=== PATIENT | female | born 1935 | race Caucasian/White ===

== ENCOUNTER 2017-01-12 09:51 | Emergency (ER) | payer MEDICARE ==
[~2017-01-12] VITALS: Ht 157.5 cm; Wt 71.0 kg
[~2017-01-12 09:51] MED LIST: ASCO500C2 PO; ASPI-515 PO; ATOR10TA9 PO; CHOL100018 PO; FLAX100013 PO; HUM100VI6 SQ; INSU100C5 SQ-INSULIN; INSU100I17 SQ-INSULIN; INSU100V12 SC; INSU100V12 SQ; LEVO150T5 PO; LEVO500T33 PO; LOSA50TA6 PO; OMEP-110 PO; [UNRECOGNIZED DRUG - OTHER] PO
[2017-01-12] MEDS ORDERED: LORazepam 2 MG/ML, 1ML ONE (10:19)
[2017-01-12] MEDS ORDERED: LORazepam 2 MG/ML, 1ML IVPush ONE (10:30)
[2017-01-12] MEDS ORDERED: SODIUM CHLORIDE FLUSH 10ML SYR IVF ONE (10:30)
[2017-01-12] MEDS ORDERED: SODIUM CHLORIDE 0.9% 1,000ML IVBOLUS ONE (10:30)
[2017-01-12 10:40] LABS: ASPARTATE AMINO TRANSFERASE 23 U/L (15-37); BLOOD UREA NITROGEN 26 mg/dL (7-18)
[2017-01-12 10:45] LABS: IS PT STATUS REG ER OR PRE ER? YES
[2017-01-12 12:08] VITALS: BP 124/54
== END 2017-01-12 13:21 | disposition home or self-care (01) ==
LOC: ED 10:39
DX: R42 Dizziness and giddiness (principal); F41.1 Generalized anxiety disorder; R06.4 Hyperventilation; E78.00 Pure hypercholesterolemia, unspecified; I10 Essential (primary) hypertension; E11.9 Type 2 diabetes mellitus without complications; E78.5 Hyperlipidemia, unspecified; Z85.9 Personal history of malignant neoplasm, unspecified; Z88.0 Allergy status to penicillin
CPT/HCPCS: 36415; 71010; 80053; 83690; 84484; 85025; 93005; 96361; 96374; 99285; J2060; J7030

== ENCOUNTER 2017-04-05 10:11 | Inpatient (IN) | payer MEDICARE ==
[~2017-04-05] VITALS: Ht 157.5 cm; Wt 63.5 kg
[2017-04-05] MEDS ORDERED: SODIUM CHLORIDE 0.9% 1,000 ML IV ONE (10:54)
[2017-04-05] MEDS ORDERED: ONDANSETRON 2MG/ML, 2ML IVPush ONE (11:00)
[2017-04-05] MEDS ORDERED: MORPHINE SULFATE 4 MG/ML, 1ML IVPush PRN (11:00)
[2017-04-05] MEDS ORDERED: MORPHINE SULFATE 4 MG/ML, 1ML ONE (11:26)
[2017-04-05] MEDS ORDERED: ONDANSETRON 2MG/ML, 2ML ONE (11:27)
[2017-04-05 11:50] LABS: HEMATOCRIT 41.9 % (34.6-47.8); HEMOGLOBIN 13.9 g/dL (11.7-16.4); WHITE BLOOD COUNT 6.1 x10^3/uL (3.4-10)
[2017-04-05 12:01] LABS: ASPARTATE AMINO TRANSFERASE 25 U/L (15-37); BLOOD UREA NITROGEN 32 mg/dL (7-18)
[2017-04-05 12:11] LABS: IS PT STATUS REG ER OR PRE ER? YES
[2017-04-05] MEDS ORDERED: GADOBUTROL 7.5 MMOL/7.5 ML PFS ONE (13:18)
[2017-04-05] MEDS ORDERED: ONDANSETRON 2MG/ML, 2ML IVPush PRN (14:30)
[2017-04-05] MEDS ORDERED: morphine SULFATE 10 MG/ML, 1ML IVPush PRN (14:30)
[2017-04-05] MEDS ORDERED: POLYETHYLENE GLYCOL 17 GM PACKET PO PRN (14:30)
[2017-04-05] MEDS ORDERED: LABETALOL 5MG/ML, 20ML IVPush PRN (14:30)
[2017-04-05] MEDS ORDERED: HYDROcodone/APAP 5/325 TABLET PO PRN (14:30)
[2017-04-05] MEDS ORDERED: HYDROmorphone 1 MG/ML, 1ML ONE (15:45)
[2017-04-05] MEDS: INSULIN ASPART 100 UNITS/ML, PEN SQ-INSULIN SCH ×2 (18:00→21:12)
[2017-04-05] MEDS: ACETAMINOPHEN 325 MG TABLET PO PRN (18:58)
[2017-04-05 20:00] VITALS: BP 108/60
[2017-04-05] MEDS: ATORVASTATIN 40 MG TABLET PO SCH (21:11)
[2017-04-05] MEDS: ASCORBIC ACID 500 MG TABLET PO SCH (21:11)
[2017-04-05] MEDS: INSULIN DETEMIR 100 UNITS/ML, PEN SQ-INSULIN SCH (21:12)
[2017-04-06 04:50] VITALS: BP 107/64
[2017-04-06 06:52] VITALS: BP 118/64
[2017-04-06] MEDS: INSULIN ASPART 100 UNITS/ML, PEN SQ-INSULIN SCH ×4 (08:11→20:13)
[2017-04-06] MEDS: ACETAMINOPHEN 325 MG TABLET PO PRN ×2 (08:22→20:12)
[2017-04-06] MEDS: LEVOTHYROXINE 150 MCG TABLET PO SCH (08:22)
[2017-04-06] MEDS: CHOLECALCIFEROL 1,000 UNIT TABLET PO SCH (08:22)
[2017-04-06] MEDS: CLOPIDOGREL 75 MG TABLET PO SCH (08:22)
[2017-04-06] MEDS: ASCORBIC ACID 500 MG TABLET PO SCH ×2 (08:22→20:14)
[2017-04-06] MEDS ORDERED: INSULIN ASPART 70/30, VIAL SQ-INSULIN SCH (09:00)
[2017-04-06] MEDS ORDERED: OMEPRAZOLE 20 MG CAPSULE.DR PO SCH (09:00)
[2017-04-06 15:00] VITALS: BP 121/59
[2017-04-06 19:54] VITALS: BP 129/74
[2017-04-06] MEDS: INSULIN DETEMIR 100 UNITS/ML, PEN SQ-INSULIN SCH (20:14)
[2017-04-06] MEDS: ATORVASTATIN 40 MG TABLET PO SCH (20:14)
[2017-04-07 01:35] VITALS: BP 107/63
[2017-04-07] MEDS: INSULIN ASPART 100 UNITS/ML, PEN SQ-INSULIN SCH ×4 (07:00→21:06)
[2017-04-07] MEDS: ACETAMINOPHEN 325 MG TABLET PO PRN (07:51)
[2017-04-07 08:23] VITALS: BP 132/68
[2017-04-07] MEDS ORDERED: LEVOFLOXACIN 500 MG TABLET PO ONE (08:30)
[2017-04-07] MEDS: ASCORBIC ACID 500 MG TABLET PO SCH ×2 (10:06→21:05)
[2017-04-07] MEDS: CLOPIDOGREL 75 MG TABLET PO SCH (10:06)
[2017-04-07] MEDS: LEVOTHYROXINE 150 MCG TABLET PO SCH (10:06)
[2017-04-07] MEDS: CHOLECALCIFEROL 1,000 UNIT TABLET PO SCH (10:06)
[2017-04-07] MEDS: CALCIUM CARBONATE 500 MG TAB.CHEW PO PRN ×2 (10:49→16:26)
[2017-04-07 12:53] VITALS: BP 149/66
[2017-04-07 18:54] VITALS: BP 176/72
[2017-04-07] MEDS: INSULIN DETEMIR 100 UNITS/ML, PEN SQ-INSULIN SCH (21:05)
[2017-04-07] MEDS: ATORVASTATIN 40 MG TABLET PO SCH (21:05)
[2017-04-07 21:07] VITALS: BP 168/76
[2017-04-08 01:43] VITALS: BP 126/69
[2017-04-08] MEDS: ACETAMINOPHEN 325 MG TABLET PO PRN (06:22)
[2017-04-08] MEDS: INSULIN ASPART 100 UNITS/ML, PEN SQ-INSULIN SCH ×4 (07:00→21:59)
[2017-04-08 09:05] VITALS: BP 154/69
[2017-04-08] MEDS: CALCIUM CARBONATE 500 MG TAB.CHEW PO PRN ×2 (09:12→16:45)
[2017-04-08] MEDS: LEVOFLOXACIN 250 MG TABLET PO SCH (09:12)
[2017-04-08] MEDS: CLOPIDOGREL 75 MG TABLET PO SCH (09:13)
[2017-04-08] MEDS: CHOLECALCIFEROL 1,000 UNIT TABLET PO SCH (09:13)
[2017-04-08] MEDS: ASCORBIC ACID 500 MG TABLET PO SCH ×2 (09:13→21:57)
[2017-04-08] MEDS: LEVOTHYROXINE 150 MCG TABLET PO SCH (09:13)
[2017-04-08] MEDS ORDERED: LABETALOL 5MG/ML, 20ML IVPush PRN (10:30)
[2017-04-08 14:41] VITALS: BP 133/67
[2017-04-08 19:31] VITALS: BP 160/78
[2017-04-08] MEDS: ATORVASTATIN 40 MG TABLET PO SCH (21:57)
[2017-04-08] MEDS: INSULIN DETEMIR 100 UNITS/ML, PEN SQ-INSULIN SCH (21:59)
[2017-04-09 01:26] VITALS: BP 110/61
[2017-04-09] MEDS: INSULIN ASPART 100 UNITS/ML, PEN SQ-INSULIN SCH ×4 (07:00→21:55)
[2017-04-09 07:38] VITALS: BP 144/66
[2017-04-09 09:01] LABS: HEMATOCRIT 37.6 % (34.6-47.8); HEMOGLOBIN 12.6 g/dL (11.7-16.4); WHITE BLOOD COUNT 5.1 x10^3/uL (3.4-10)
[2017-04-09 09:22] LABS: ASPARTATE AMINO TRANSFERASE 66 U/L (15-37); BLOOD UREA NITROGEN 29 mg/dL (7-18)
[2017-04-09] MEDS: LEVOFLOXACIN 250 MG TABLET PO SCH (10:35)
[2017-04-09] MEDS: LEVOTHYROXINE 150 MCG TABLET PO SCH (10:35)
[2017-04-09] MEDS: CLOPIDOGREL 75 MG TABLET PO SCH (10:35)
[2017-04-09] MEDS: CHOLECALCIFEROL 1,000 UNIT TABLET PO SCH (10:36)
[2017-04-09] MEDS: CALCIUM CARBONATE 500 MG TAB.CHEW PO PRN ×2 (10:36→16:37)
[2017-04-09] MEDS: ASCORBIC ACID 500 MG TABLET PO SCH ×2 (10:36→21:55)
[2017-04-09 15:03] VITALS: BP 170/70
[2017-04-09 18:06] VITALS: BP 138/71
[2017-04-09 20:46] VITALS: BP 160/71
[2017-04-09] MEDS: ATORVASTATIN 40 MG TABLET PO SCH (21:55)
[2017-04-09] MEDS: INSULIN DETEMIR 100 UNITS/ML, PEN SQ-INSULIN SCH (21:56)
[2017-04-10 00:55] VITALS: BP 116/67
[2017-04-10 06:00] LABS: ASPARTATE AMINO TRANSFERASE 58 U/L (15-37); BLOOD UREA NITROGEN 29 mg/dL (7-18)
[2017-04-10] MEDS: INSULIN ASPART 100 UNITS/ML, PEN SQ-INSULIN SCH ×2 (07:00→11:01)
[2017-04-10 08:05] VITALS: BP 117/66
[2017-04-10] MEDS: CLOPIDOGREL 75 MG TABLET PO SCH (08:12)
[2017-04-10] MEDS: LEVOTHYROXINE 150 MCG TABLET PO SCH (08:13)
[2017-04-10] MEDS: ASCORBIC ACID 500 MG TABLET PO SCH (08:13)
[2017-04-10] MEDS: CHOLECALCIFEROL 1,000 UNIT TABLET PO SCH (08:13)
[2017-04-10] MEDS: CALCIUM CARBONATE 500 MG TAB.CHEW PO PRN (08:46)
[2017-04-10] MEDS ORDERED: LEVOFLOXACIN 250 MG TABLET PO SCH (09:00)
[2017-04-10] MEDS ORDERED: LEVO250T23 PO (09:12)
[2017-04-10] MEDS ORDERED: CLOP75TA PO (09:12)
[2017-04-10] MEDS ORDERED: ATOR40TA78 PO (09:12)
== END 2017-04-10 11:45 | disposition home health service (06) | DRG 65 ==
LOC: ED 11:42 → EDIP 14:04 → SUATTDRO 14:06 → 4EST 16:37 → DCLOUNGE 04-10 11:15
PROVIDERS: ADMIT Internal Medicine; ATTEND Internal Medicine
DX: I63.9 Cerebral infarction, unspecified (principal); N39.0 Urinary tract infection, site not specified; N13.30 Unspecified hydronephrosis; E03.9 Hypothyroidism, unspecified; E11.22 Type 2 diabetes mellitus with diabetic chronic kidney disease; E55.9 Vitamin D deficiency, unspecified; E78.5 Hyperlipidemia, unspecified; F32.9 Major depressive disorder, single episode, unspecified; G43.909 Migraine, unspecified, not intractable, without status migrainosus; I08.0 Rheumatic disorders of both mitral and aortic valves; I12.9 Hypertensive chronic kidney disease with stage 1 through stage 4 chronic kidney disease, or unspecified chronic kidney disease; I65.23 Occlusion and stenosis of bilateral carotid arteries; K21.9 Gastro-esophageal reflux disease without esophagitis; H54.7 Unspecified visual loss; K76.0 Fatty (change of) liver, not elsewhere classified; N18.3 Chronic kidney disease, stage 3 (moderate); R74.0 Nonspecific elevation of levels of transaminase and lactic acid dehydrogenase [LDH]; B96.20 Unspecified Escherichia coli [E. coli] as the cause of diseases classified elsewhere; D32.9 Benign neoplasm of meninges, unspecified; Z79.4 Long term (current) use of insulin; Z79.82 Long term (current) use of aspirin; Z79.899 Other long term (current) drug therapy; Z80.3 Family history of malignant neoplasm of breast; Z85.72 Personal history of non-Hodgkin lymphomas; Z86.73 Personal history of transient ischemic attack (TIA), and cerebral infarction without residual deficits; Z90.49 Acquired absence of other specified parts of digestive tract; Z88.1 Allergy status to other antibiotic agents; Z91.030 Bee allergy status; Z88.5 Allergy status to narcotic agent; Z88.0 Allergy status to penicillin; Z88.2 Allergy status to sulfonamides; Z91.018 Allergy to other foods
CPT/HCPCS: 36415; 70450; 70544; 70551; 70553; 71010; 76700; 80047; 80053; 80061; 81001; 82962; 83036; 84443; 84484; 85025; 85610; 85651; 85730; 87077; 87086; 87186; 93005; 93306; 93880; 96361; 96374; 96375; 99292; A9585; J1815; J2405; 92523-GN; J7030

== ENCOUNTER 2017-09-09 19:37 | Emergency (ER) | payer MEDICARE ==
[~2017-09-09] VITALS: Ht 157.5 cm; Wt 71.8 kg
[~2017-09-09 19:37] MED LIST changes: +ATOR40TA78 PO; +CHOL100012 PO; -CHOL100018 PO; +CLOP75TA PO; +LEVO250T23 PO; -LEVO500T33 PO; +LEVO500T47 PO
[2017-09-09] MEDS ORDERED: SODIUM CHLORIDE FLUSH 10ML SYR IVF ONE (20:00)
[2017-09-09 20:29] LABS: BASOPHILS # (AUTO) 0.03 x10^3/uL (0-0.1); BASOPHILS % (AUTO) 1 % (0-1); EOSINOPHILS # (AUTO) 0.08 x10^3/uL (0-0.4); EOSINOPHILS % (AUTO) 2 % (1-7); LYMPHOCYTES # (AUTO) 0.98 x10^3/uL (1-3.4); LYMPHOCYTES % (AUTO) 22 % (22-44); MD NO; MEAN CORPUSCULAR HGB CONC 33.6 g/dL (32.4-35.8); MEAN CORPUSCULAR VOLUME 89.3 fL (80-100); MEAN PLATELET VOLUME 8.5 fL (7.4-10.4); MONOCYTES # (AUTO) 0.42 x10^3/uL (0.2-0.8); MONOCYTES % (AUTO) 10 % (2-9); NEUTROPHILS # (AUTO) 2.87 x10^3/uL (1.8-6.8); NEUTROPHILS % (AUTO) 65 % (42-75); PLATELET COUNT 189 x10^3/uL (130-400); RED BLOOD COUNT 4.49 x10^6/uL (3.82-5.3); RED CELL DISTRIBUTION WIDTH 14.4 % (9.6-15.2)
[2017-09-09 20:37] LABS: INTERNATIONAL NORMALIZED RATIO 0.99 (0.93-1.1); PROTHROMBIN TIME 10.3 Seconds (9.6-11.5)
[2017-09-09 20:40] LABS: ALANINE AMINOTRANSFERASE 32 U/L (12-78); ALBUMIN 3.6 g/dL (3.4-5.0); ANION GAP 8 mmol/L (5-15); CALCIUM 9.5 mg/dL (8.5-10.1); CHLORIDE 108 mmol/L (98-107); CREATININE 1.28 mg/dL (0.55-1.02)
[2017-09-09 20:43] LABS: ALKALINE PHOSPHATASE 85 U/L (45-117); TOTAL PROTEIN 6.8 g/dL (6.4-8.2)
[2017-09-09 21:39] VITALS: BP 157/61
== END 2017-09-09 21:43 | disposition home or self-care (01) ==
LOC: ED 21:20
DX: G45.9 Transient cerebral ischemic attack, unspecified (principal); N28.9 Disorder of kidney and ureter, unspecified; R20.0 Anesthesia of skin; Z88.0 Allergy status to penicillin; Z88.6 Allergy status to analgesic agent; Z88.2 Allergy status to sulfonamides; Z90.49 Acquired absence of other specified parts of digestive tract; E78.5 Hyperlipidemia, unspecified; I10 Essential (primary) hypertension; E11.9 Type 2 diabetes mellitus without complications; Z88.1 Allergy status to other antibiotic agents
CPT/HCPCS: 36415; 70450; 80053; 85025; 85610; 93005; 99285

== ENCOUNTER 2018-02-12 17:08 | Inpatient (IN) | payer MEDICARE ==
[~2018-02-12] VITALS: Ht 157.5 cm; Wt 71.8 kg
[~2018-02-12 17:08] MED LIST changes: +ATOR-2 PO; +CEFD300C37 PO
[2018-02-12 17:46] LABS: BASOPHILS # (AUTO) 0.01 x10^3/uL (0-0.1); BASOPHILS % (AUTO) 0 % (0-1); EOSINOPHILS # (AUTO) 0.04 x10^3/uL (0-0.4); EOSINOPHILS % (AUTO) 1 % (1-7); LYMPHOCYTES # (AUTO) 0.87 x10^3/uL (1-3.4); LYMPHOCYTES % (AUTO) 11 % (22-44); MD NO; MEAN CORPUSCULAR HEMOGLOBIN 30.2 pg (27.0-34.8); MEAN CORPUSCULAR HGB CONC 33.6 g/dL (32.4-35.8); MEAN PLATELET VOLUME 8.4 fL (7.4-10.4); MONOCYTES # (AUTO) 0.48 x10^3/uL (0.2-0.8); MONOCYTES % (AUTO) 6 % (2-9); NEUTROPHILS # (AUTO) 6.24 x10^3/uL (1.8-6.8); NEUTROPHILS % (AUTO) 82 % (42-75); PLATELET COUNT 217 x10^3/uL (130-400); RED BLOOD COUNT 4.67 x10^6/uL (3.82-5.3); RED CELL DISTRIBUTION WIDTH 14.1 % (9.6-15.2)
[2018-02-12 17:52] LABS: ALANINE AMINOTRANSFERASE 120 U/L (12-78); ALBUMIN 3.9 g/dL (3.4-5.0); ANION GAP 9 mmol/L (5-15); CALCIUM 9.9 mg/dL (8.5-10.1); CHLORIDE 107 mmol/L (98-107); CREATININE 1.25 mg/dL (0.55-1.02)
[2018-02-12 17:55] LABS: ALKALINE PHOSPHATASE 102 U/L (45-117); BILIRUBIN,TOTAL 1.8 mg/dL (0.2-1.0); TOTAL PROTEIN 7.4 g/dL (6.4-8.2)
[2018-02-12 18:10] LABS: MICROSCOPIC NOT IND
[2018-02-12 18:11] LABS: CULTURE INDICATED? NO
[2018-02-12] MEDS ORDERED: MORPHINE SULFATE 4 MG/ML, 1ML ONE ×2 (18:15→20:15)
[2018-02-12] MEDS: MORPHINE SULFATE 4 MG/ML, 1ML IVPush PRN ×2 (18:17→20:17)
[2018-02-12] MEDS ORDERED: SODIUM CHLORIDE FLUSH 10ML SYR IVF ONE (18:30)
[2018-02-12] MEDS ORDERED: PANT40TA5 PO (20:21)
[2018-02-12] MEDS ORDERED: NORT25CA PO (20:21)
[2018-02-12] MEDS ORDERED: MULT-658 PO (20:21)
[2018-02-12] MEDS ORDERED: POTASSIUM CHLORIDE 20 MEQ in LACTATED RINGERS 1,000 ML IV SCH (20:59)
[2018-02-12] MEDS ORDERED: ONDANSETRON ODT 4 MG PO PRN (21:00)
[2018-02-12] MEDS ORDERED: DEXTROSE 50%, 50ML SYRINGE IVPush PRN (21:00)
[2018-02-12] MEDS ORDERED: morphine SULFATE 10 MG/ML, 1ML IVPush PRN (21:00)
[2018-02-12] MEDS ORDERED: hydrALAzine 20 MG/ML, 1ML IVPush PRN (21:00)
[2018-02-12] MEDS ORDERED: DEXTROSE 4 GM TAB.CHEW PO PRN (21:00)
[2018-02-12] MEDS ORDERED: GLUCAGON 1 MG IM PRN (21:00)
[2018-02-12] MEDS ORDERED: ENALAPRILAT 1.25 MG/ML, 2ML IVPush PRN (21:00)
[2018-02-12] MEDS ORDERED: BISACODYL 10 MG SUPP PR PRN (21:00)
[2018-02-12] MEDS ORDERED: ACETAMINOPHEN 325 MG TABLET PO PRN (21:00)
[2018-02-12 21:10] VITALS: BP 128/64
[2018-02-12] MEDS: ONDANSETRON 2MG/ML, 2ML IVPush PRN (21:19)
[2018-02-12 22:00] VITALS: BP 128/64
[2018-02-12] MEDS: ATORVASTATIN 80 MG TABLET PO SCH (22:37)
[2018-02-12] MEDS: SODIUM CHLORIDE FLUSH 10ML SYR IVF SCH (22:37)
[2018-02-12] MEDS: PANTOPROZOLE 40MG TABLET PO SCH (22:37)
[2018-02-12] MEDS: ENOXAPARIN 40 MG/0.4 ML SQ SCH (22:38)
[2018-02-12] MEDS: KETOROLAC 30 MG/1 ML IVPush SCH (22:38)
[2018-02-12] MEDS: INSULIN LISPRO 100 UNITS/ML, PEN SQ-INSULIN SCH (23:23)
[2018-02-13 03:10] VITALS: BP 150/72
[2018-02-13] MEDS: KETOROLAC 30 MG/1 ML IVPush SCH ×4 (03:49→22:25)
[2018-02-13 05:31] LABS: BASOPHILS % (AUTO) 0 % (0-1); EOSINOPHILS # (AUTO) 0.01 x10^3/uL (0-0.4); EOSINOPHILS % (AUTO) 0 % (1-7); LYMPHOCYTES # (AUTO) 0.54 x10^3/uL (1-3.4); LYMPHOCYTES % (AUTO) 8 % (22-44); MD NO; MEAN CORPUSCULAR HEMOGLOBIN 30.2 pg (27.0-34.8); MEAN CORPUSCULAR HGB CONC 33.8 g/dL (32.4-35.8); MEAN CORPUSCULAR VOLUME 89.5 fL (80-100); MEAN PLATELET VOLUME 8.5 fL (7.4-10.4); MONOCYTES # (AUTO) 0.58 x10^3/uL (0.2-0.8); MONOCYTES % (AUTO) 9 % (2-9); NEUTROPHILS # (AUTO) 5.55 x10^3/uL (1.8-6.8); NEUTROPHILS % (AUTO) 83 % (42-75); PLATELET COUNT 174 x10^3/uL (130-400); RED BLOOD COUNT 4.15 x10^6/uL (3.82-5.3); RED CELL DISTRIBUTION WIDTH 14.5 % (9.6-15.2)
[2018-02-13 05:39] LABS: ALBUMIN 3.4 g/dL (3.4-5.0); ANION GAP 8 mmol/L (5-15); CALCIUM 9.5 mg/dL (8.5-10.1); CHLORIDE 105 mmol/L (98-107)
[2018-02-13 05:42] LABS: ALANINE AMINOTRANSFERASE 622 U/L (12-78); ALKALINE PHOSPHATASE 220 U/L (45-117); BILIRUBIN,TOTAL 2.7 mg/dL (0.2-1.0); CREATININE 1.18 mg/dL (0.55-1.02); TOTAL PROTEIN 6.4 g/dL (6.4-8.2)
[2018-02-13] MEDS: HYDROcodone/APAP 5/325 TABLET PO PRN ×3 (06:11→18:30)
[2018-02-13 07:03] VITALS: BP 145/67
[2018-02-13] MEDS ORDERED: INSULIN HUMULIN 70/30, 3ML PEN SQ-INSULIN SCH (09:00)
[2018-02-13] MEDS ORDERED: FLAXSEED 1000 MG PO SCH (09:00)
[2018-02-13] MEDS ORDERED: INSULIN ASPART 70/30, VIAL SQ-INSULIN SCH (09:00)
[2018-02-13] MEDS: INSULIN ASPART 70/30 100U/ML, PEN SQ-INSULIN SCH (09:15)
[2018-02-13] MEDS: INSULIN LISPRO 100 UNITS/ML, PEN SQ-INSULIN SCH ×4 (09:15→22:38)
[2018-02-13] MEDS: SODIUM CHLORIDE FLUSH 10ML SYR IVF SCH ×2 (09:18→22:38)
[2018-02-13] MEDS: PANTOPROZOLE 40MG TABLET PO SCH ×2 (09:18→22:25)
[2018-02-13] MEDS: CHOLECALCIFEROL 1,000 UNIT TABLET PO SCH (09:18)
[2018-02-13] MEDS: MULTIVITAMIN 1 TABLET PO SCH (09:18)
[2018-02-13] MEDS: SENNA/DOCUSATE TABLET PO SCH (09:18)
[2018-02-13] MEDS: CLOPIDOGREL 75 MG TABLET PO SCH (09:18)
[2018-02-13] MEDS: LEVOTHYROXINE 150 MCG TABLET PO SCH (09:19)
[2018-02-13] MEDS: LOSARTAN 50MG TABLET PO SCH (09:19)
[2018-02-13] MEDS: NORTRIPTYLINE 25 MG CAPSULE PO SCH (09:19)
[2018-02-13 12:16] VITALS: BP 138/60
[2018-02-13 19:15] VITALS: BP 145/75
[2018-02-13] MEDS: ENOXAPARIN 40 MG/0.4 ML SQ SCH (22:25)
[2018-02-13] MEDS: ATORVASTATIN 80 MG TABLET PO SCH (22:25)
[2018-02-14] MEDS: POTASSIUM CHLORIDE 20 MEQ in LACTATED RINGERS 1,000 ML IV SCH ×2 (01:46→11:49)
[2018-02-14 02:00] VITALS: BP 133/67
[2018-02-14] MEDS: KETOROLAC 30 MG/1 ML IVPush SCH ×3 (04:16→17:34)
[2018-02-14] MEDS: HYDROcodone/APAP 5/325 TABLET PO PRN (04:16)
[2018-02-14] MEDS: LEVOTHYROXINE 150 MCG TABLET PO SCH (05:26)
[2018-02-14 05:52] LABS: CHLORIDE 103 mmol/L (98-107)
[2018-02-14 06:06] LABS: ALANINE AMINOTRANSFERASE 436 U/L (12-78); ALBUMIN 3.3 g/dL (3.4-5.0); ALKALINE PHOSPHATASE 211 U/L (45-117); ANION GAP 8 mmol/L (5-15); BILIRUBIN,TOTAL 1.9 mg/dL (0.2-1.0); CREATININE 1.27 mg/dL (0.55-1.02); TOTAL PROTEIN 6.5 g/dL (6.4-8.2)
[2018-02-14 06:40] VITALS: BP 166/66
[2018-02-14] MEDS: SODIUM CHLORIDE FLUSH 10ML SYR IVF SCH ×2 (07:53→21:51)
[2018-02-14] MEDS: INSULIN LISPRO 100 UNITS/ML, PEN SQ-INSULIN SCH ×4 (07:53→21:51)
[2018-02-14] MEDS: LOSARTAN 50MG TABLET PO SCH (07:54)
[2018-02-14] MEDS: SENNA/DOCUSATE TABLET PO SCH (07:56)
[2018-02-14] MEDS: MULTIVITAMIN 1 TABLET PO SCH (07:56)
[2018-02-14] MEDS: NORTRIPTYLINE 25 MG CAPSULE PO SCH (07:56)
[2018-02-14] MEDS: CLOPIDOGREL 75 MG TABLET PO SCH (07:56)
[2018-02-14] MEDS: PANTOPROZOLE 40MG TABLET PO SCH ×2 (07:56→21:43)
[2018-02-14] MEDS: CHOLECALCIFEROL 1,000 UNIT TABLET PO SCH (07:56)
[2018-02-14] MEDS: INSULIN ASPART 70/30 100U/ML, PEN SQ-INSULIN SCH (07:57)
[2018-02-14] MEDS: OXYcodone IR 5MG TABLET PO PRN ×4 (07:57→21:43)
[2018-02-14] MEDS ORDERED: methylPREDNISolone 4mg DOSE PACK PO SCH (09:00)
[2018-02-14 14:14] VITALS: BP 158/65
[2018-02-14] MEDS: LIDODERM 5% PATCH TD SCH (17:34)
[2018-02-14 20:00] VITALS: BP 157/71
[2018-02-14] MEDS: ATORVASTATIN 80 MG TABLET PO SCH (21:43)
[2018-02-14] MEDS: ENOXAPARIN 30 MG/0.3 ML SQ SCH (21:50)
[2018-02-15] MEDS: KETOROLAC 30 MG/1 ML IVPush SCH ×4 (00:14→18:28)
[2018-02-15] MEDS: POTASSIUM CHLORIDE 20 MEQ in LACTATED RINGERS 1,000 ML IV SCH (00:14)
[2018-02-15 02:14] VITALS: BP 153/71
[2018-02-15] MEDS: OXYcodone IR 5MG TABLET PO PRN ×3 (04:41→23:55)
[2018-02-15] MEDS: LIDODERM 5% PATCH TD SCH (05:00)
[2018-02-15 05:02] LABS: ALANINE AMINOTRANSFERASE 314 U/L (12-78); ALBUMIN 3.3 g/dL (3.4-5.0); ANION GAP 8 mmol/L (5-15); CALCIUM 8.9 mg/dL (8.5-10.1); CHLORIDE 105 mmol/L (98-107); CREATININE 1.24 mg/dL (0.55-1.02)
[2018-02-15 05:04] LABS: ALKALINE PHOSPHATASE 200 U/L (45-117); BILIRUBIN,TOTAL 1.4 mg/dL (0.2-1.0); TOTAL PROTEIN 6.7 g/dL (6.4-8.2)
[2018-02-15] MEDS: LEVOTHYROXINE 150 MCG TABLET PO SCH (06:10)
[2018-02-15 07:59] VITALS: BP 142/70
[2018-02-15] MEDS: INSULIN ASPART 70/30 100U/ML, PEN SQ-INSULIN SCH (08:13)
[2018-02-15] MEDS: INSULIN LISPRO 100 UNITS/ML, PEN SQ-INSULIN SCH ×4 (08:14→21:26)
[2018-02-15] MEDS: SODIUM CHLORIDE FLUSH 10ML SYR IVF SCH ×2 (08:17→21:22)
[2018-02-15] MEDS: SENNA/DOCUSATE TABLET PO SCH (08:17)
[2018-02-15] MEDS: MULTIVITAMIN 1 TABLET PO SCH (08:17)
[2018-02-15] MEDS: CLOPIDOGREL 75 MG TABLET PO SCH (08:18)
[2018-02-15] MEDS: PANTOPROZOLE 40MG TABLET PO SCH ×2 (08:18→21:22)
[2018-02-15] MEDS: NORTRIPTYLINE 25 MG CAPSULE PO SCH (08:18)
[2018-02-15] MEDS: CHOLECALCIFEROL 1,000 UNIT TABLET PO SCH (08:18)
[2018-02-15] MEDS: LOSARTAN 50MG TABLET PO SCH (08:19)
[2018-02-15] MEDS: ONDANSETRON 2MG/ML, 2ML IVPush PRN (10:06)
[2018-02-15 14:00] VITALS: BP 149/69
[2018-02-15 21:18] VITALS: BP 156/74
[2018-02-15] MEDS: ENOXAPARIN 30 MG/0.3 ML SQ SCH (21:22)
[2018-02-15] MEDS: ATORVASTATIN 80 MG TABLET PO SCH (21:22)
[2018-02-16] MEDS: KETOROLAC 30 MG/1 ML IVPush SCH ×4 (00:36→18:46)
[2018-02-16 00:40] VITALS: BP 153/79
[2018-02-16] MEDS: POLYETHYLENE GLYCOL 17 GM PACKET PO PRN (02:54)
[2018-02-16] MEDS: LIDODERM 5% PATCH TD SCH (05:50)
[2018-02-16] MEDS: LEVOTHYROXINE 150 MCG TABLET PO SCH (05:50)
[2018-02-16 06:15] LABS: ALANINE AMINOTRANSFERASE 251 U/L (12-78); ALBUMIN 3.2 g/dL (3.4-5.0); ALKALINE PHOSPHATASE 200 U/L (45-117); BILIRUBIN,TOTAL 1.1 mg/dL (0.2-1.0); CALCIUM 8.6 mg/dL (8.5-10.1); CREATININE 1.15 mg/dL (0.55-1.02); TOTAL PROTEIN 6.5 g/dL (6.4-8.2)
[2018-02-16 06:31] LABS: ANION GAP 10 mmol/L (5-15); CHLORIDE 103 mmol/L (98-107)
[2018-02-16 07:54] VITALS: BP 138/71
[2018-02-16] MEDS: CHOLECALCIFEROL 1,000 UNIT TABLET PO SCH (08:31)
[2018-02-16] MEDS: INSULIN LISPRO 100 UNITS/ML, PEN SQ-INSULIN SCH ×4 (08:31→20:18)
[2018-02-16] MEDS: MULTIVITAMIN 1 TABLET PO SCH (08:31)
[2018-02-16] MEDS: SENNA/DOCUSATE TABLET PO SCH (08:31)
[2018-02-16] MEDS: INSULIN ASPART 70/30 100U/ML, PEN SQ-INSULIN SCH (08:31)
[2018-02-16] MEDS: CLOPIDOGREL 75 MG TABLET PO SCH (08:31)
[2018-02-16] MEDS: LOSARTAN 50MG TABLET PO SCH (08:32)
[2018-02-16] MEDS: SODIUM CHLORIDE FLUSH 10ML SYR IVF SCH ×2 (08:32→20:07)
[2018-02-16] MEDS: NORTRIPTYLINE 25 MG CAPSULE PO SCH (08:32)
[2018-02-16] MEDS: PANTOPROZOLE 40MG TABLET PO SCH ×2 (08:32→20:08)
[2018-02-16] MEDS: OXYcodone IR 5MG TABLET PO PRN ×2 (11:09→20:08)
[2018-02-16 14:38] VITALS: BP 155/76
[2018-02-16 19:26] VITALS: BP 135/72
[2018-02-16] MEDS: ENOXAPARIN 40 MG/0.4 ML SQ SCH (20:07)
[2018-02-16] MEDS: ATORVASTATIN 80 MG TABLET PO SCH (20:07)
[2018-02-17] MEDS: KETOROLAC 30 MG/1 ML IVPush SCH ×4 (00:28→18:31)
[2018-02-17 02:05] VITALS: BP 171/72
[2018-02-17 03:09] VITALS: BP 122/75
[2018-02-17] MEDS: OXYcodone IR 5MG TABLET PO PRN ×3 (04:26→21:39)
[2018-02-17] MEDS: LEVOTHYROXINE 150 MCG TABLET PO SCH (05:29)
[2018-02-17] MEDS: LIDODERM 5% PATCH TD SCH (05:30)
[2018-02-17] MEDS: INSULIN LISPRO 100 UNITS/ML, PEN SQ-INSULIN SCH ×4 (09:29→20:05)
[2018-02-17] MEDS: LOSARTAN 50MG TABLET PO SCH (09:30)
[2018-02-17] MEDS: CLOPIDOGREL 75 MG TABLET PO SCH (09:30)
[2018-02-17] MEDS: MULTIVITAMIN 1 TABLET PO SCH (09:30)
[2018-02-17] MEDS: SENNA/DOCUSATE TABLET PO SCH (09:30)
[2018-02-17] MEDS: PANTOPROZOLE 40MG TABLET PO SCH ×2 (09:30→19:57)
[2018-02-17] MEDS: NORTRIPTYLINE 25 MG CAPSULE PO SCH (09:30)
[2018-02-17] MEDS: CHOLECALCIFEROL 1,000 UNIT TABLET PO SCH (09:30)
[2018-02-17] MEDS: INSULIN ASPART 70/30 100U/ML, PEN SQ-INSULIN SCH (09:31)
[2018-02-17] MEDS: SODIUM CHLORIDE FLUSH 10ML SYR IVF SCH ×2 (09:34→19:57)
[2018-02-17 09:37] VITALS: BP 131/68
[2018-02-17 16:51] VITALS: BP 109/69
[2018-02-17] MEDS: POLYETHYLENE GLYCOL 17 GM PACKET PO PRN (17:40)
[2018-02-17 19:35] VITALS: BP 110/63
[2018-02-17] MEDS: ATORVASTATIN 80 MG TABLET PO SCH (19:57)
[2018-02-17] MEDS: ENOXAPARIN 40 MG/0.4 ML SQ SCH (19:57)
[2018-02-18 01:52] VITALS: BP 117/66
[2018-02-18] MEDS: LIDODERM 5% PATCH TD SCH (05:33)
[2018-02-18] MEDS: LEVOTHYROXINE 150 MCG TABLET PO SCH (05:34)
[2018-02-18 07:37] VITALS: BP 129/74
[2018-02-18] MEDS: INSULIN LISPRO 100 UNITS/ML, PEN SQ-INSULIN SCH ×4 (08:34→21:23)
[2018-02-18] MEDS: MULTIVITAMIN 1 TABLET PO SCH (08:35)
[2018-02-18] MEDS: NORTRIPTYLINE 25 MG CAPSULE PO SCH (08:35)
[2018-02-18] MEDS: LOSARTAN 50MG TABLET PO SCH (08:35)
[2018-02-18] MEDS: SODIUM CHLORIDE FLUSH 10ML SYR IVF SCH ×2 (08:35→21:00)
[2018-02-18] MEDS: CHOLECALCIFEROL 1,000 UNIT TABLET PO SCH (08:36)
[2018-02-18] MEDS: PANTOPROZOLE 40MG TABLET PO SCH ×2 (08:36→21:17)
[2018-02-18] MEDS: INSULIN ASPART 70/30 100U/ML, PEN SQ-INSULIN SCH (08:36)
[2018-02-18] MEDS: SENNA/DOCUSATE TABLET PO SCH (08:36)
[2018-02-18] MEDS: CLOPIDOGREL 75 MG TABLET PO SCH (08:36)
[2018-02-18] MEDS ORDERED: ACETAMINOPHEN 325 MG TABLET PO PRN (09:00)
[2018-02-18] MEDS: OXYcodone IR 5MG TABLET PO PRN ×2 (09:51→21:17)
[2018-02-18 14:18] VITALS: BP 91/52
[2018-02-18 20:05] VITALS: BP 113/68
[2018-02-18] MEDS: ENOXAPARIN 40 MG/0.4 ML SQ SCH (21:16)
[2018-02-18] MEDS: ATORVASTATIN 80 MG TABLET PO SCH (21:17)
[2018-02-19 01:50] VITALS: BP 111/61
[2018-02-19] MEDS: OXYcodone IR 5MG TABLET PO PRN (02:41)
[2018-02-19] MEDS: LIDODERM 5% PATCH TD SCH (05:00)
[2018-02-19] MEDS: LEVOTHYROXINE 150 MCG TABLET PO SCH (05:44)
[2018-02-19] MEDS: INSULIN ASPART 70/30 100U/ML, PEN SQ-INSULIN SCH (08:26)
[2018-02-19] MEDS: INSULIN LISPRO 100 UNITS/ML, PEN SQ-INSULIN SCH ×2 (08:27→11:13)
[2018-02-19] MEDS: NORTRIPTYLINE 25 MG CAPSULE PO SCH (08:28)
[2018-02-19] MEDS: SODIUM CHLORIDE FLUSH 10ML SYR IVF SCH (08:28)
[2018-02-19] MEDS: CHOLECALCIFEROL 1,000 UNIT TABLET PO SCH (08:29)
[2018-02-19] MEDS: LOSARTAN 50MG TABLET PO SCH (08:29)
[2018-02-19] MEDS: SENNA/DOCUSATE TABLET PO SCH (08:29)
[2018-02-19] MEDS: MULTIVITAMIN 1 TABLET PO SCH (08:29)
[2018-02-19] MEDS: PANTOPROZOLE 40MG TABLET PO SCH (08:29)
[2018-02-19] MEDS: CLOPIDOGREL 75 MG TABLET PO SCH (08:29)
[2018-02-19 08:31] VITALS: BP 120/68
[2018-02-19] MEDS: POLYETHYLENE GLYCOL 17 GM PACKET PO PRN (11:07)
[2018-02-19 14:38] VITALS: BP 111/65
== END 2018-02-19 16:10 | DRG 551 ==
LOC: ED 18:33 → EDIP 20:21 → 3NE 20:57
PROVIDERS: ADMIT Family Medicine; ATTEND Family Medicine
DX: M51.16 Intervertebral disc disorders with radiculopathy, lumbar region (principal); R53.2 Functional quadriplegia; N18.9 Chronic kidney disease, unspecified; E03.9 Hypothyroidism, unspecified; E78.5 Hyperlipidemia, unspecified; E78.00 Pure hypercholesterolemia, unspecified; E11.22 Type 2 diabetes mellitus with diabetic chronic kidney disease; Z66 Do not resuscitate; G43.909 Migraine, unspecified, not intractable, without status migrainosus; I12.9 Hypertensive chronic kidney disease with stage 1 through stage 4 chronic kidney disease, or unspecified chronic kidney disease; Z86.73 Personal history of transient ischemic attack (TIA), and cerebral infarction without residual deficits; Z79.02 Long term (current) use of antithrombotics/antiplatelets; Z79.4 Long term (current) use of insulin; Z85.72 Personal history of non-Hodgkin lymphomas; Z90.710 Acquired absence of both cervix and uterus; Z90.49 Acquired absence of other specified parts of digestive tract; Z88.5 Allergy status to narcotic agent; Z88.0 Allergy status to penicillin; Z88.2 Allergy status to sulfonamides; Z88.1 Allergy status to other antibiotic agents; Z91.030 Bee allergy status
CPT/HCPCS: 36415; 72131; 74176; 76705; 80053; 80074; 80307; 81003; 82962; 83690; 85025; 99285; J1650; J1885; J2405; J3480; J7509; Q0162; J0360; J1815; J7120

== ENCOUNTER → 2019-03-03 | Outpatient (CLI) | payer MEDICARE ==
[~2019-03-03] MED LIST changes: +CLOP75TA52 PO; +GABA100C PO; +LOSA50TA14 PO; -LOSA50TA6 PO; +MAGN200T7 PO; +MIRA25TA PO; +MULT-658 PO; +NORT25CA78 PO; +PANT40TA5 PO; +VIT1CAPS42 PO; +[UNRECOGNIZED DRUG - OTHER] PO
[2019-03-03 10:14] LABS: ALBUMIN 3.8 g/dL (3.4-5.0); ANION GAP 8 mmol/L (5-15); CALCIUM 9.4 mg/dL (8.5-10.1); CHLORIDE 108 mmol/L (98-107)
[2019-03-03 10:17] LABS: MICROSCOPIC NOT IND
[2019-03-03 10:18] LABS: ALANINE AMINOTRANSFERASE 26 U/L (12-78); ALKALINE PHOSPHATASE 95 U/L (45-117); CREATININE 0.94 mg/dL (0.55-1.02); TOTAL PROTEIN 6.7 g/dL (6.4-8.2)
[2019-03-03 10:24] LABS: CULTURE INDICATED? NO
== END | disposition home or self-care (01) ==
LOC: STAR 08:50
PROVIDERS: ATTEND Orthopaedic Surgery
DX: Z01.818 Encounter for other preprocedural examination (principal); G56.03 Carpal tunnel syndrome, bilateral upper limbs; I45.10 Unspecified right bundle-branch block
CPT/HCPCS: 36415; 80053; 81003; 93005

== ENCOUNTER → 2019-08-13 | Outpatient (CLI) | payer MEDICARE ==
[~2019-08-13] MED LIST changes: +ASCO250T2 PO; +ROSU10TA2 PO
[2019-08-13 10:53] LABS: ALANINE AMINOTRANSFERASE 28 U/L (12-78); ALBUMIN 3.7 g/dL (3.4-5.0); ANION GAP 6 mmol/L (5-15); CALCIUM 9.6 mg/dL (8.5-10.1); CHLORIDE 110 mmol/L (98-107)
[2019-08-13 10:56] LABS: ALKALINE PHOSPHATASE 85 U/L (45-117); BILIRUBIN,TOTAL 1.3 mg/dL (0.2-1.0); CREATININE 1.11 mg/dL (0.55-1.02); TOTAL PROTEIN 6.8 g/dL (6.4-8.2)
== END | disposition home or self-care (01) ==
LOC: STAR 09:45
PROVIDERS: ATTEND Surgery
DX: Z01.818 Encounter for other preprocedural examination (principal); R92.8 Other abnormal and inconclusive findings on diagnostic imaging of breast; I45.10 Unspecified right bundle-branch block; Z80.3 Family history of malignant neoplasm of breast; Z88.0 Allergy status to penicillin; Z88.2 Allergy status to sulfonamides; Z88.8 Allergy status to other drugs, medicaments and biological substances
CPT/HCPCS: 36415; 80053; 93005

== ENCOUNTER 2019-08-18 09:29 | Day surgery (SDC) | payer MEDICARE ==
[~2019-08-18] VITALS: Ht 154.9 cm; Wt 71.0 kg
[~2019-08-18 09:29] MED LIST changes: +BUPIVACAINE/PF 0.5% ONE; +LIDOCAINE 1%, 20ML ONE
[2019-08-18] MEDS ORDERED: EPINEPHRINE 1 MG/ML, 1ML ONE (10:02)
[2019-08-18 11:29] VITALS: BP 128/74
[2019-08-18] MEDS ORDERED: LIDOCAINE 1%, 20ML ONE (11:31)
[2019-08-18] MEDS ORDERED: LIDOCAINE 1%-EPI 1:100K, 20ML ONE (11:31)
[2019-08-18] MEDS ORDERED: SODIUM BICARBONATE 4.2%, 5ML ONE (11:31)
[2019-08-18] MEDS ORDERED: LACTATED RINGERS 1,000 ML IV SCH (11:42)
[2019-08-18] MEDS ORDERED: FENTANYL PF 100 MCG/2ML ONE (13:17)
[2019-08-18] MEDS ORDERED: DEXAMETHASONE 4 MG/ML, 1ML ONE (13:50)
[2019-08-18] MEDS ORDERED: ONDANSETRON 2MG/ML, 2ML ONE (13:50)
[2019-08-18] MEDS ORDERED: PROPOFOL 10 MG/ML, 20ML ONE (13:50)
[2019-08-18] MEDS ORDERED: CEFAZOLIN 1,000 MG ONE (13:50)
[2019-08-18] MEDS ORDERED: FENTANYL PF 100 MCG/2ML IV PRN (14:00)
[2019-08-18] MEDS ORDERED: PROMETHAZINE 25 MG/ML, 1ML IV PRN (14:00)
[2019-08-18] MEDS ORDERED: ONDANSETRON ODT 8 MG PO PRN (14:00)
[2019-08-18] MEDS ORDERED: ONDANSETRON 2MG/ML, 2ML IV PRN (14:00)
[2019-08-18] MEDS ORDERED: ACETAMINOPHEN 325 MG TABLET PO PRN (14:00)
[2019-08-18] MEDS ORDERED: HYDROmorphone 2 MG/ML, 1ML IVPush PRN (14:00)
[2019-08-18] MEDS ORDERED: hydrALAzine 20 MG/ML, 1ML IV PRN (14:00)
[2019-08-18] MEDS ORDERED: OXYcodone 5 MG/5 ML ORAL.SOL UDC PO PRN (14:00)
[2019-08-18] MEDS ORDERED: PROMETHAZINE 25 MG SUPP PR PRN (14:00)
[2019-08-18] MEDS ORDERED: LABETALOL 5MG/ML, 20ML IV PRN (14:00)
== END 2019-08-18 16:20 | disposition home or self-care (01) ==
LOC: OR 09:29 → OUT 16:20
PROVIDERS: ATTEND Surgery
DX: R92.8 Other abnormal and inconclusive findings on diagnostic imaging of breast (principal); N63.10 Unspecified lump in the right breast, unspecified quadrant; E11.9 Type 2 diabetes mellitus without complications; I10 Essential (primary) hypertension; Z79.4 Long term (current) use of insulin; Z79.890 Hormone replacement therapy; Z79.899 Other long term (current) drug therapy; Z88.0 Allergy status to penicillin; Z86.73 Personal history of transient ischemic attack (TIA), and cerebral infarction without residual deficits; Z88.2 Allergy status to sulfonamides; Z88.5 Allergy status to narcotic agent; Z90.49 Acquired absence of other specified parts of digestive tract; Z80.3 Family history of malignant neoplasm of breast
CPT/HCPCS: 19125; 19281; 82962; 88307; 88341; 88342; J0171; J0690; J1100; J2405; J2704; J3010; J3490; J7120

== ENCOUNTER 2019-10-09 12:56 | Emergency (ER) | payer MEDICARE ==
[~2019-10-09] VITALS: Ht 154.9 cm; Wt 69.0 kg
[~2019-10-09 12:56] MED LIST changes: -BUPIVACAINE/PF 0.5% ONE; -LIDOCAINE 1%, 20ML ONE
[2019-10-09 13:32] LABS: BASOPHILS # (AUTO) 0.03 x10^3/uL (0-0.1); BASOPHILS % (AUTO) 0 % (0-1); EOSINOPHILS # (AUTO) 0.27 x10^3/uL (0-0.4); EOSINOPHILS % (AUTO) 3 % (1-7); LYMPHOCYTES # (AUTO) 0.75 x10^3/uL (1-3.4); LYMPHOCYTES % (AUTO) 9 % (22-44); MD NO; MEAN CORPUSCULAR HEMOGLOBIN 29.3 pg (27.0-34.8); MEAN CORPUSCULAR HGB CONC 32.9 g/dL (32.4-35.8); MEAN CORPUSCULAR VOLUME 89.1 fL (80-100); MEAN PLATELET VOLUME 7.8 fL (7.4-10.4); MONOCYTES # (AUTO) 0.59 x10^3/uL (0.2-0.8); MONOCYTES % (AUTO) 7 % (2-9); NEUTROPHILS # (AUTO) 6.49 x10^3/uL (1.8-6.8); NEUTROPHILS % (AUTO) 80 % (42-75); PLATELET COUNT 235 x10^3/uL (130-400); RED BLOOD COUNT 4.02 x10^6/uL (3.82-5.3); RED CELL DISTRIBUTION WIDTH 13.8 % (9.6-15.2)
[2019-10-09 13:44] LABS: ALANINE AMINOTRANSFERASE 41 U/L (12-78); ALBUMIN 3.1 g/dL (3.4-5.0); ANION GAP 5 mmol/L (5-15); CALCIUM 9.1 mg/dL (8.5-10.1); CHLORIDE 108 mmol/L (98-107); CREATININE 1.08 mg/dL (0.55-1.02)
[2019-10-09 13:49] LABS: ALKALINE PHOSPHATASE 127 U/L (45-117); BILIRUBIN,TOTAL 1.1 mg/dL (0.2-1.0); TOTAL PROTEIN 6.9 g/dL (6.4-8.2); TROPONIN I < 0.015 ng/mL (0.000-0.045)
[2019-10-09 14:10] LABS: MICROSCOPIC INDICATED
[2019-10-09 14:13] LABS: CULTURE INDICATED? YES
[2019-10-09] MEDS ORDERED: CEFTRIAXONE PMX 1GM/50ML 50 ML ONE (15:59)
[2019-10-09] MEDS ORDERED: CEFTRIAXONE PMX 1GM/50ML 50 ML IV ONE (16:00)
[2019-10-09 16:48] LABS: TROPONIN I < 0.015 ng/mL (0.000-0.045)
[2019-10-09 17:17] VITALS: BP 125/58
== END 2019-10-09 17:48 | disposition home or self-care (01) ==
LOC: ED 16:59
DX: N30.00 Acute cystitis without hematuria (principal); R55 Syncope and collapse; R51 Headache; R11.0 Nausea; E11.9 Type 2 diabetes mellitus without complications; E78.00 Pure hypercholesterolemia, unspecified; I11.9 Hypertensive heart disease without heart failure; Z90.89 Acquired absence of other organs; Z90.49 Acquired absence of other specified parts of digestive tract; Z90.710 Acquired absence of both cervix and uterus; Z86.73 Personal history of transient ischemic attack (TIA), and cerebral infarction without residual deficits
CPT/HCPCS: 36415; 70450; 80053; 81001; 84484; 85025; 87077; 87086; 87186; 93005; 96365; 99284; J0696

== ENCOUNTER 2019-10-25 06:12 | Day surgery (SDC) | payer MEDICARE ==
[~2019-10-25] VITALS: Ht 153.7 cm; Wt 70.5 kg
[2019-10-25] MEDS ORDERED: SODIUM CHLORIDE 0.9% 1,000 ML IV SCH (07:00)
[2019-10-25] MEDS ORDERED: hormones PO (07:08)
[2019-10-25 07:25] VITALS: BP 139/64
[2019-10-25 07:35] LABS: BASOPHILS # (AUTO) 0.04 x10^3/uL (0-0.1); BASOPHILS % (AUTO) 1 % (0-1); EOSINOPHILS # (AUTO) 0.36 x10^3/uL (0-0.4); EOSINOPHILS % (AUTO) 5 % (1-7); LYMPHOCYTES # (AUTO) 0.87 x10^3/uL (1-3.4); LYMPHOCYTES % (AUTO) 12 % (22-44); MD NO; MEAN CORPUSCULAR HEMOGLOBIN 29.3 pg (27.0-34.8); MEAN CORPUSCULAR HGB CONC 33.2 g/dL (32.4-35.8); MEAN CORPUSCULAR VOLUME 88.1 fL (80-100); MEAN PLATELET VOLUME 7.6 fL (7.4-10.4); MONOCYTES # (AUTO) 0.55 x10^3/uL (0.2-0.8); MONOCYTES % (AUTO) 7 % (2-9); NEUTROPHILS # (AUTO) 5.69 x10^3/uL (1.8-6.8); NEUTROPHILS % (AUTO) 76 % (42-75); PLATELET COUNT 289 x10^3/uL (130-400); RED BLOOD COUNT 4.12 x10^6/uL (3.82-5.3); RED CELL DISTRIBUTION WIDTH 13.6 % (9.6-15.2)
[2019-10-25] MEDS ORDERED: NALOXONE 1 MG/ML, 2ML ONE (08:19)
[2019-10-25] MEDS ORDERED: FENTANYL PF 100 MCG/2ML ONE (08:19)
[2019-10-25] MEDS ORDERED: MIDAZOLAM 1 MG/ML, 5ML ONE (08:19)
[2019-10-25] MEDS ORDERED: FLUMAZENIL 0.1 MG/1 ML, 5ML ONE (08:19)
== END 2019-10-25 11:25 | disposition home or self-care (01) ==
LOC: OUT 06:12
PROVIDERS: ATTEND Internal Medicine Hematology & Oncology
DX: C85.10 Unspecified B-cell lymphoma, unspecified site (principal); I10 Essential (primary) hypertension; E11.9 Type 2 diabetes mellitus without complications; Z88.0 Allergy status to penicillin; Z88.2 Allergy status to sulfonamides; Z88.5 Allergy status to narcotic agent; Z88.1 Allergy status to other antibiotic agents; Z91.030 Bee allergy status
CPT/HCPCS: 36415; 38222; 77012; 85025; 85097; 88237; 88264; 88280; 88305; 88311; 88313; 99156; 99157; J2250; J3010; J7030; J2310

== ENCOUNTER 2019-11-19 08:28 | Outpatient (CLI) | payer MEDICARE ==
[~2019-11-19 08:28] MED LIST changes: +hormones PO
== END 2019-11-19 23:59 | disposition home or self-care (01) ==
LOC: ROC 08:28
PROVIDERS: ATTEND Radiology Radiation Oncology
DX: C50.911 Malignant neoplasm of unspecified site of right female breast (principal); C85.99 Non-Hodgkin lymphoma, unspecified, extranodal and solid organ sites
CPT/HCPCS: 99214; G0463

== ENCOUNTER 2020-01-10 07:51 | Outpatient (CLI) | payer MEDICARE | END 2020-01-10 23:59 | disposition home or self-care (01) | LOC: ROC 07:51 | PROVIDERS: ATTEND Radiology Radiation Oncology | DX: C50.911 Malignant neoplasm of unspecified site of right female breast (principal); Z85.72 Personal history of non-Hodgkin lymphomas | CPT/HCPCS: 99212; G0463 ==

== ENCOUNTER 2020-02-21 07:54 | Outpatient (CLI) | payer MEDICARE | END 2020-02-21 23:59 | disposition home or self-care (01) | LOC: ROC 07:54 | PROVIDERS: ATTEND Radiology Radiation Oncology | DX: C50.911 Malignant neoplasm of unspecified site of right female breast (principal); Z85.72 Personal history of non-Hodgkin lymphomas | CPT/HCPCS: 99213; G0463 ==

== ENCOUNTER → 2020-05-17 | Outpatient (CLI) | payer MEDICARE ==
[~2020-05-17] MED LIST changes: +ASCO250T12 PO; -ASCO250T2 PO; -PANT40TA5 PO; +PANT40TA6 PO
== END | disposition home or self-care (01) ==
LOC: ROC 07:31
PROVIDERS: ATTEND Radiology Radiation Oncology
DX: C50.911 Malignant neoplasm of unspecified site of right female breast (principal)
CPT/HCPCS: 99212; G0463

== ENCOUNTER 2020-08-14 00:01 | Emergency (ER) | payer MEDICARE ==
[~2020-08-14] VITALS: Ht 152.4 cm; Wt 70.0 kg
--- NOTE | 2020-08-14 00:10 | NUR ---
Patient comes in with complaints of N/V/D that started earlier this evening. Started with a headache as well, after "letting everything out" feels better, still has a headache. Believes that it may be a reaction from the generic form of her Novalog 70/30. Patient alert and oriented x4, all gross motor intact.
[2020-08-14 00:42] LABS: BASOPHILS % (AUTO) 0 % (0-1); EOSINOPHILS % (AUTO) 0 % (1-7); LYMPHOCYTES % (AUTO) 4 % (22-44); MEAN CORPUSCULAR HEMOGLOBIN 29.9 pg (27.0-34.8); MEAN CORPUSCULAR HGB CONC 33.5 g/dL (32.4-35.8); MEAN PLATELET VOLUME 8.3 fL (7.4-10.4); MONOCYTES % (AUTO) 7 % (2-9); NEUTROPHILS % (AUTO) 89 % (42-75); PLATELET COUNT 194 x10^3/uL (130-400); RED BLOOD COUNT 4.24 x10^6/uL (3.82-5.3); RED CELL DISTRIBUTION WIDTH 13.9 % (9.6-15.2)
[2020-08-14 00:44] LABS: ALBUMIN 3.5 g/dL (3.4-5.0); ANION GAP 4 mmol/L (5-15); CALCIUM 9.2 mg/dL (8.5-10.1); CHLORIDE 113 mmol/L (98-107)
[2020-08-14 00:50] LABS: ALANINE AMINOTRANSFERASE 20 U/L (12-78); ALKALINE PHOSPHATASE 81 U/L (45-117); BILIRUBIN,TOTAL 1.3 mg/dL (0.2-1.0); CREATININE 1.38 mg/dL (0.55-1.02); TOTAL PROTEIN 6.9 g/dL (6.4-8.2); TROPONIN I < 0.015 ng/mL (0.000-0.045)
[2020-08-14 01:02] LABS: MD MORPH REVIEW ONLY
[2020-08-14 01:03] LABS: <PLATELET ESTIMATE> ADEQUATE; ANISOCYTOSIS 1+; OVALOCYTES 1+; TEAR DROPS 1+
[2020-08-14 01:04] LABS: LARGE PLATELETS 1+
[2020-08-14] MEDS ORDERED: ONDANSETRON ODT 4 MG PO ONE (02:00)
[2020-08-14] MEDS ORDERED: ACETAMINOPHEN 325 MG TABLET PO ONE (02:00)
[2020-08-14] MEDS ORDERED: ACETAMINOPHEN 325 MG TABLET ONE (02:01)
[2020-08-14] MEDS ORDERED: ONDANSETRON ODT 4 MG ONE (02:01)
[2020-08-14 02:10] VITALS: BP 110/50
== END 2020-08-14 02:21 | disposition home or self-care (01) ==
LOC: ED 02:15
DX: R11.2 Nausea with vomiting, unspecified (principal); R51.9 Headache, unspecified; I45.10 Unspecified right bundle-branch block; I10 Essential (primary) hypertension; E11.9 Type 2 diabetes mellitus without complications; E78.5 Hyperlipidemia, unspecified; E78.00 Pure hypercholesterolemia, unspecified; I25.10 Atherosclerotic heart disease of native coronary artery without angina pectoris; Z86.73 Personal history of transient ischemic attack (TIA), and cerebral infarction without residual deficits; Z90.89 Acquired absence of other organs; Z90.49 Acquired absence of other specified parts of digestive tract; Z90.710 Acquired absence of both cervix and uterus
CPT/HCPCS: 36415; 70450; 80053; 83690; 84484; 85025; 93005; 99285; Q0162

== ENCOUNTER 2020-11-30 05:58 | Day surgery (SDC) | payer MEDICARE ==
[~2020-11-30] VITALS: Ht 152.4 cm; Wt 72.3 kg
[~2020-11-30 05:58] MED LIST changes: -ASPI-515 PO; +ASPI-963 PO
[2020-11-30 06:45] VITALS: BP 151/68
[2020-11-30 06:55] LABS: BASOPHILS % (AUTO) 2 % (0-1); EOSINOPHILS % (AUTO) 2 % (1-7); LYMPHOCYTES % (AUTO) 7 % (22-44); MEAN CORPUSCULAR HEMOGLOBIN 30.4 pg (27.0-34.8); MEAN CORPUSCULAR HGB CONC 33.7 g/dL (32.4-35.8); MEAN PLATELET VOLUME 8.1 fL (7.4-10.4); MONOCYTES % (AUTO) 11 % (2-9); NEUTROPHILS % (AUTO) 78 % (42-75); PLATELET COUNT 187 x10^3/uL (130-400); RED BLOOD COUNT 3.98 x10^6/uL (3.82-5.3); RED CELL DISTRIBUTION WIDTH 14.3 % (9.6-15.2)
[2020-11-30 06:56] LABS: MD NO
[2020-11-30] MEDS ORDERED: CRAN1CAP2 PO (06:59)
[2020-11-30] MEDS ORDERED: MIRA25TA PO (06:59)
[2020-11-30] MEDS ORDERED: MAGN400T36 PO (06:59)
[2020-11-30] MEDS ORDERED: SODIUM CHLORIDE 0.9% 1,000 ML IV ONE (07:00)
[2020-11-30] MEDS ORDERED: CARV6.2512 PO (07:00)
[2020-11-30 07:03] LABS: ANION GAP 6 mmol/L (5-15); CALCIUM 9.1 mg/dL (8.5-10.1); CHLORIDE 113 mmol/L (98-107); CREATININE 1.18 mg/dL (0.55-1.02)
[2020-11-30] MEDS ORDERED: MIDAZOLAM 1 MG/ML, 2ML ONE (07:21)
[2020-11-30] MEDS ORDERED: HEPARIN 1,000 UNITS/ML, 10ML ONE (07:22)
[2020-11-30] MEDS ORDERED: VERAPAMIL 2.5 MG/ML, 2ML ONE (07:22)
[2020-11-30] MEDS ORDERED: FENTANYL PF 100 MCG/2ML ONE (07:22)
[2020-11-30] MEDS ORDERED: LIDOCAINE-MPF 1%, 5ML ONE (07:22)
[2020-11-30] MEDS ORDERED: PROPOFOL 10 MG/ML, 20ML ONE (07:36)
[2020-11-30] MEDS ORDERED: SODIUM CHLORIDE 0.9% 1,000 ML IV SCH (09:30)
[2020-11-30] MEDS ORDERED: PHENYLEPHRINE 10 MG/ML ONE (09:37)
[2020-11-30] MEDS ORDERED: ACETAMINOPHEN 325 MG TABLET ONE (11:00)
== END 2020-11-30 11:12 | disposition home or self-care (01) ==
LOC: CACL 05:58
PROVIDERS: ATTEND Internal Medicine Cardiovascular Disease
DX: I34.0 Nonrheumatic mitral (valve) insufficiency (principal); I35.0 Nonrheumatic aortic (valve) stenosis; E11.22 Type 2 diabetes mellitus with diabetic chronic kidney disease; I12.9 Hypertensive chronic kidney disease with stage 1 through stage 4 chronic kidney disease, or unspecified chronic kidney disease; N18.2 Chronic kidney disease, stage 2 (mild); E78.2 Mixed hyperlipidemia; E03.9 Hypothyroidism, unspecified; Z20.822 Contact with and (suspected) exposure to COVID-19; Z79.02 Long term (current) use of antithrombotics/antiplatelets; Z79.4 Long term (current) use of insulin; Z79.890 Hormone replacement therapy; Z79.899 Other long term (current) drug therapy; Z88.0 Allergy status to penicillin; Z88.2 Allergy status to sulfonamides; Z88.5 Allergy status to narcotic agent; Z85.3 Personal history of malignant neoplasm of breast
CPT/HCPCS: 36415; 80048; 85025; 87635; 93312; 93321; 93325; 93456; C1769; C1894; J1644; J2370; J2704; Q9967; 76937; J2250; J3010

== ENCOUNTER → 2021-01-01 | Outpatient (CLI) | payer MEDICARE ==
[~2021-01-01] MED LIST changes: +CARV6.2512 PO; +CRAN1CAP2 PO; +MAGN400T36 PO
== END | disposition home or self-care (01) ==
LOC: CVU 08:59
PROVIDERS: ATTEND Internal Medicine Cardiovascular Disease
DX: I65.23 Occlusion and stenosis of bilateral carotid arteries (principal); E11.9 Type 2 diabetes mellitus without complications; Z85.3 Personal history of malignant neoplasm of breast
CPT/HCPCS: 93880